=== PATIENT | male | born 1960 | race Caucasian/White ===

== ENCOUNTER → 2021-01-17 13:39 | Outpatient (BNVA) | payer OTHER, SELFPAY | PROVIDERS: PCP Chiropractor; Visit Provider Internal Medicine Cardiovascular Disease | DX: I48.19 Other persistent atrial fibrillation (principal); Z20.822 Contact with and (suspected) exposure to COVID-19 | CPT/HCPCS: 80048; 85025; 85610; 87635 ==

== ENCOUNTER → 2021-01-18 13:39 | Outpatient (BNVA) | payer OTHER, SELFPAY | PROVIDERS: PCP Chiropractor; Visit Provider Internal Medicine Cardiovascular Disease | DX: Z20.822 Contact with and (suspected) exposure to COVID-19 (principal); I48.19 Other persistent atrial fibrillation | CPT/HCPCS: 87635 ==

== ENCOUNTER 2021-01-23 09:56 | Day surgery (SDC) | payer SELFPAY ==
[2021-01-18 12:50] VITALS: BMI 29.1
--- NOTE | 2021-01-23 10:21 | ECG_ITS ---
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 Measurements Intervals [place] Rate: 71 P: ID: QRS: 33 QRSD: 89 T: 3 QT: 387 QTc: 421 Interpretive Statements ATRIAL FIBRILLATION ABNORMAL RHYTHM ECG INTERPRETATION BASED ON A DEFAULT AGE OF 40 YEARS No previous ECG available for comparison Electronically Signed On 01-23-2021 21:47:12 CDT by Parisa Lima M.D. [id number]
--- NOTE | 2021-01-23 10:23 | USCV_ITS ---
Matt Anaya Age: 60 Gender: M : 1960 Exam Date: 01/23/2021 12:22 Ordering Phys: Antonietta Carrasco MD ([email or web address]) Technologist: Xochitl Pham [place] [facility] [place]: AFIB WITH CARDIOVERSION BP: / HR: Rhythm: Sinus Technical Quality: Good MEASUREMENTS (Male / Female) Normal Values Medications Patient given IV sedation by anesthesia service, for details please refer to the anesthesia report. Complications None. Proc. Components SRI was performed at multiple levels. FINDINGS Left Ventricle Normal left ventricular cavity size. Normal left ventricular systolic function. No regional wall motion abnormalities. Left ventricular ejection fraction is estimated at 60 %. Right Ventricle The right ventricle is normal in size and function. Right Atrium The right atrium is normal in size. Left Atrium Moderately increased left atrial size. LA Appendage Normal left atrial appendage. No thrombus visualized in the left atrial appendage. IA Septum The interatrial septum is normal. Mitral Valve Structurally normal mitral valve. No mitral valve stenosis. Trace mitral valve regurgitation. Aortic Valve Structurally normal aortic valve without significant sclerosis or stenosis. There is no aortic regurgitation. Tricuspid Valve Trace tricuspid valve regurgitation. Pulmonic Valve Structurally normal pulmonic valve without significant stenosis. There is no pulmonic regurgitation. Pericardium Normal pericardium without effusion. Aorta Normal ascending aorta dimension. CONCLUSIONS 1-Normal left ventricular cavity size. Normal left ventricular systolic function. No regional wall motion abnormalities. Left ventricular ejection fraction is estimated at 60 %. 2-Moderately increased left atrial size. 3-No significant valve abnormalities. 4-There is no pericardial effusion. 5-No prior transesophageal echocardiogram to compare. Proceed with direct current electrical cardioversion as there is no left atrial or appendage thrombus Antonietta Carrasco MD (Electronically Signed) Final Date: 31 January 2021 14:57 S
[2021-01-23 10:29] VITALS: BP 105/69; PULSE 63; RESP 18; TEMP 36.1; O2SAT 95
[2021-01-23] MEDS: sodium chloride 0.9% 1,000 ML 30 ML IV (10:41)
--- NOTE | 2021-01-23 12:13 | ANES.PREANE2 ---
Pre-Anesthetic Assessment Pre-Anesthetic Assessment: Height/Weight: Height 1.83 m Weight 97.522 kg Temp Pulse Resp BP Pulse Ox 97 F L 63 18 105/69 95 01/23/21 10:29 01/23/21 10:29 01/23/21 10:29 01/23/21 10:29 01/23/21 10:29 Preop Diagnosis: Atrial fibrillation Proposed Procedure: Operation Date: 01/23/21 12:00 Proposed Procedures p SIR(Not Applicable) - Antonietta Carrasco MD s Cardioversion(Not Applicable) - Antonietta Carrasco MD Was Beta Connie taken within 24 hours: N/A Was Clonidine taken within 24 hours: N/A Last intake: Intake Last Liquid Date 01/22/21 Last Liquid Time 23:00 Last Solid Date 01/22/21 Last Solid Time 23:00 Social: Social History: No alcohol and No tobacco Exam: Pre-Anes Outpt Exam: alert, oriented x 3 and clear to auscultation bilaterally Airway: Submandibular: WNL Cervical ROM: WNL MP: 2 Dentition: Full History/ROS: No significant history except as noted Pulmonary: Pulmonary: Sleep apnea Comments: non-compliant with CPAP, educated on importance. CV/HEM: CV/HEM: Afib : : None reported Hepatic: Hepatic: None reported GI: GI: None reported Metabolic: Metabolic: None reported Musc/skel: Musc/skel: None reported Neuropsych: Neuropsych: None reported Anesthetic Plan: ASA status: 2 Anesthesia: MAC Meds/Allergies Current Medications: Current Medications Generic Name Dose Route Start Last Admin Trade Name Freq PRN Reason Stop Dose Admin Sodium Chloride 1,000 mls @ 30 ml s/hr 01/23/21 10:30 01/23/21 10:41 Sodium Chloride 0.9% IV 01/24/21 10:29 30 mls/hr .Q24H OLU Administration PFSH Anesthesia PFSH: Medical History (Updated 01/14/21 @ 15:35 by Antonietta Carrasco MD) Atrial fibrillation Family History Father Cancer Social History (Updated 01/10/21 @ 14:28 by Tanya Gaspar, NISH) Smoking and tobacco status: never smoked Data Anesthesia Cardiac Studies: No Data to Display
--- NOTE | 2021-01-23 12:31 | W.PM.OPSUD ---
Surgery/Procedure H&P Update DATE OF PROCEDURE: January 23, 2021 DATE H&P PERFORMED: 01/10/21 H&P UPDATE INFORMATION: I have reviewed H&P completed within last 30 days, I have examined patient prior to procedure and No changes to prior documentation PREOP DIAGNOSIS: Atrial fibrillation PRIMARY INDICATION FOR PROCEDURE: Atrial fibrillation, unwillingness to take medications. Patient is on anticoagulation at least. He is on Eliquis. We are planning to perform transesophageal echocardiographic guided electrical cardioversion. I have explained in detail all the risk benefit and alternative for the procedure including risk for stroke bradycardia asystole leading to intubation temporary permanent pacemaker and worse case scenario . Patient understand the risk for the injury to esophagus mouth pharynx larynx aspiration. He would like to proceed with it. PLANNED PROCEDURE: Operation Date: 01/23/21 12:00 Proposed Procedures p SRI(Not Applicable) - Antonietta Carrasco MD s Cardioversion(Not Applicable) - Antonietta Carrasco MD
--- NOTE | 2021-01-23 12:46 | ECG_ITS ---
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 Measurements Intervals [place] Rate: 79 P: 44 NC: 186 QRS: 42 QRSD: 86 T: 19 QT: 381 QTc: 438 Interpretive Statements SINUS RHYTHM WITH MARKED SINUS ARRHYTHMIA Compared to ECG 01/23/2021 10:24:15 Atrial fibrillation no longer present Electronically Signed On 01-23-2021 21:30:23 CDT by Parisa Lima M.D. [id number]
[2021-01-23 12:55] VITALS: BP 96/69; PULSE 71; RESP 18; TEMP 36.2; O2SAT 98
[2021-01-23 13:10] VITALS: BP 101/74; PULSE 69; RESP 18; O2SAT 94
--- NOTE | 2021-01-23 13:11 | ANE.PACU2 ---
Inpatient post-anesthesia follow up: Airway intact: Yes Vital signs: Temperature 97.1 F Pulse Rate 69 Respiratory Rate 18 Blood Pressure 101/74 Pulse Oximetry 94 Oxygen Delivery Me thod Room Air Oxygen Flow Rate 4 Fraction of Inspir ed Oxygen Hydration adequate: Yes Nausea and vomiting: No Pain level: 2 Mental status: Baseline
--- NOTE | 2021-01-31 14:58 | P.PCN_ITS ---
Procedure Note: Date of procedure: 01/23/21 Pre-procedure diagnosis: Atrial fibrillation Procedure: After carefully explaining all risk benefit and alternative for the procedure patient was given propofol by anesthesia. Please see anesthesia note. Transesophageal echocardiogram was performed which ruled out intracardiac thrombus. Transesophageal echocardiographic probe was taken out of the patient. After confirming deep sedation DC cardioversion was performed using biphasic defibrillators and delivering 150 J once. Patient converted into sinus rhythm which was confirmed by twelve-lead EKG. Patient recovered from the procedure without any complication, he was discharged home. Coding Level of Care Code Acute Tooling Inspector for Beatriz Su
== END 2021-01-23 13:49 | disposition home or self-care (01) ==
PROVIDERS: PCP Chiropractor; Visit Provider Internal Medicine Cardiovascular Disease
PROC: (CPT 93312; principal; 2021-01-23 12:00)
PROC: 5A2204Z Restoration of Cardiac Rhythm, Single (ICD-10-PCS; 2021-01-23 12:00)
DX: I48.91 Unspecified atrial fibrillation (principal)
CPT/HCPCS: 92960; 93005; 93312; 93320; 93325; 96360; 96361; J7030